=== PATIENT | female | born 1970 | race Caucasian/White ===

== ENCOUNTER 2017-09-10 23:26 | Emergency (ER) | payer OTHER ==
[2017-09-10] MEDS ORDERED: HYDROmorphone 2 MG/ML SDV IM ONE (23:51)
--- NOTE | 2017-09-10 23:57 | EDM.PDOC ---
ED HPI GENERAL MEDICAL PROBLEM - General Chief Complaint: General Stated Complaint: BACK PAIN Time Seen by Provider: 09/10/17 23:52 Source of Information: Reports: Patient History Limitations: Reports: No Limitations - History of Present Illness INITIAL COMMENTS - FREE TEXT/NARRATIVE: Complains of right upper back and right chest wall pain due to muscle spasm, worse with movement. No relief with Tizanidine, Orphenadrine, Tylenol and Ibuprofen. Last took Ibuprofen @2330. History of similar symptoms in past due to cervicalgia. Duration: Day(s): (4) Quality: Reports: Dull Severity: Moderate Improves with: Reports: None Worsens with: Reports: None Associated Symptoms: Reports: No Other Symptoms Treatments PROCEDURES TECH: Reports: Acetaminophen, NSAIDS, Other Medication(s) back of the neck Pain Score (Numeric/FACES): 7 - Related Data Allergies Allergy/AdvReac Type Severity Reaction Status Date / Time latex Allergy Swelling Verified 09/11/17 00:55 Sulfa (Sulfonamide Allergy Cannot Verified 09/11/17 00:55 Antibiotics) Remember Home Meds: Home Meds tiZANidine HCl [Tizanidine HCl] 4 mg PO TID PRN 06/19/13 [History] Acetaminophen/HYDROcodone [[place] 325-5 MG] 1 - 2 tab PO Q6H PRN #20 tab [Rx] Orphenadrine [Norflex] 100 mg PO BID PRN 09/11/17 [History] Past Medical History Cardiovascular History: Denies: CAD Musculoskeletal History: Reports: Neck Pain, Chronic Neurological History: Reports: Migraines - Past Surgical History Other Musculoskeletal Surgeries/Procedures:: Cervical spine surgeries Social & Family History - Tobacco Use Smoking Status *Q: Former Smoker (Quit 3 months ago) Tobacco Use Within Last Twelve Months: Cigarettes - Alcohol Use Alcohol Use History: No ED ROS GENERAL - Review of Systems Review Of Systems: See Below Constitutional: Reports: No Symptoms HEENT: Reports: No Symptoms Respiratory: Reports: No Symptoms Cardiovascular: Reports: Chest Pain (right chest wall) Endocrine: Reports: No Symptoms GI/Abdominal: Reports: No Symptoms : Reports: No Symptoms Musculoskeletal: Reports: Neck Pain, Back Pain (right upper back) Skin: Reports: No Symptoms Neurological: Reports: No Symptoms Psychiatric: Reports: No Symptoms Hematologic/Lymphatic: Reports: No Symptoms Immunologic: Reports: No Symptoms ED EXAM, GENERAL - Physical Exam Exam: See Below Exam Limited By: No Limitations General Appearance: Alert, WD/WN, No Apparent Distress Throat/Mouth: No Airway Compromise Head: Atraumatic, Normocephalic Neck: Normal Inspection Respiratory/Chest: No Respiratory Distress, Lungs Clear, Normal Breath Sounds, No Accessory Muscle Use, Other (right chest wall tenderness) Cardiovascular: Regular Rate, Rhythm, No Gallop, No JVD, No Murmur, No Rub Peripheral Pulses: 2+: Radial (R) Back Exam: Decreased Range of Motion, Muscle Spasm, Other (right upper back pain ) Extremities: Normal Inspection Neurological: Alert, Oriented, Normal Cognition, Normal Gait, Normal Reflexes, No Motor/Sensory Deficits Psychiatric: Normal Affect, Normal Mood Skin Exam: Warm, Dry, Intact, Normal Color, No Rash Course - Vital Signs Last Recorded V/S: Last Vital Signs Temp 36.6 C 09/11/17 00:05 Pulse 73 09/11/17 00:05 Resp 14 09/10/17 23:30 BP 165/96 H 09/11/17 01:00 Pulse Ox 99 09/11/17 00:05 - Orders/Labs/Meds Meds: Medications Discontinued Medications Generic Name Dose Route Start Last Admin Trade Name Freq PRN Reason Stop Dose Admin Hydromorphone HCl 1 mg 09/10/17 23:51 09/11/17 00:11 Dilaudid IM 09/10/17 23:52 1 mg ONETIME ONE Administration Hydromorphone HCl 1 mg 09/11/17 00:37 09/11/17 00:49 Dilaudid IM 09/11/17 00:38 1 mg ONETIME ONE Administration - Re-Assessments/Exams Free Text/Narrative Re-Assessment/Exam: 09/11/17 01:31 Pain now 3/10 after Dilaudid 2mg IM Departure - Departure Time of Disposition: 01:31 Disposition: Home, Self-Care 01 Condition: Good Clinical Impression: Upper back pain on right side - Discharge Information Prescriptions: Acetaminophen/HYDROcodone [[place] 325-5 MG] 1 - 2 tab PO Q6H PRN #20 tab PRN Reason: Pain (Moderate 4-6) Instructions: Musculoskeletal Pain Referrals: Marcella Bennett NP [Primary Care Provider] - Forms: ED Department Discharge Additional Instructions: Follow up with your primary physician in 2 days
[2017-09-11] MEDS ORDERED: HYDROmorphone 2 MG/ML SDV IM ONE (00:37)
[2017-09-11 01:49] VITALS: BP 158/100
== END 2017-09-11 01:50 | disposition home or self-care (01) ==
LOC: FB.ED 23:26
DX: M54.9 Dorsalgia, unspecified (principal); Z88.2 Allergy status to sulfonamides; Z91.040 Latex allergy status; Z87.891 Personal history of nicotine dependence
CPT/HCPCS: 96372; 99283; J1170

== ENCOUNTER 2019-02-06 21:13 | Emergency (ER) | payer BC ==
[2019-02-06] MEDS ORDERED: Acetaminophen/Codeine 300-30 MG Tab PO ONE (21:14)
[2019-02-06] MEDS ORDERED: Amoxicillin 500 MG Cap PO ONE (21:14)
--- NOTE | 2019-02-06 21:30 | EDM.PDOC ---
ED HPI GENERAL MEDICAL PROBLEM - General Stated Complaint: ABCESS TOOTH Time Seen by Provider: 02/06/19 21:24 Source of Information: Reports: Patient History Limitations: Reports: No Limitations - History of Present Illness INITIAL COMMENTS - FREE TEXT/NARRATIVE: Upper tooth pain. Moderate to severe. For a few days. Nothing seems to make it better. Has seen a dentist,and has plan to have it pulled. 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 ED EXAM, ENT - Physical Exam Exam: See Below Text/Narrative:: Tooth #13 has a huge cavity,and gum is swollen,tender Exam Limited By: No Limitations General Appearance: Alert, WD/WN Departure - Departure Time of Disposition: 21:31 Disposition: Home, Self-Care 01 Condition: Good Clinical Impression: Tooth abscess - Discharge Information - Problem List & Annotations (1) Tooth abscess SNOMED Code(s): 584837100 Code(s): K04.7 - PERIAPICAL ABSCESS WITHOUT SINUS Status: Acute - Problem List Review Problem List Initiated/Reviewed/Updated: Yes - Assessment/Plan Plan: Amoxil 500 mg tid.Tyleno #3 prn. F/U with dentist next week,after antibiotics
[2019-02-07 02:18] VITALS: BP 172/105; PULSE 62
== END 2019-02-06 21:45 | disposition home or self-care (01) ==
LOC: FB.ED 21:13
DX: K04.7 Periapical abscess without sinus (principal); Z91.040 Latex allergy status; Z88.2 Allergy status to sulfonamides
CPT/HCPCS: 99282; A9270-GY